=== PATIENT | male | born 1995 | race Asian ===

== ENCOUNTER → 2016-06-08 | Outpatient (CLI) | payer OTHER ==
--- NOTE | 2016-06-08 15:08 | DIAGNOSTIC IMAGING REPORT ---
SINUS CT CT DOSE: 494.44 mGy.cm HISTORY: Sinusitis. Pain. SINUSITIS TECHNIQUE: Multiaxial CT images of the paranasal sinuses were performed and reformatted in the coronal plane without the use of contrast. COMPARISON: None. FINDINGS: Minimal mucosal thickening of the dependent frontal sinuses. Mild mucosal thickening of the ethmoid sinuses. Small mucous tension cysts bases of the maxillary sinuses bilaterally. Mild soft tissue narrowing the ostiomeatal units. No evidence for occlusion. Sphenoid sinuses are clear. Minimal mucosal thickening of the mastoids The orbits are unremarkable. IMPRESSION: 1. Mild mucosal thickening of the final ethmoid and to a lesser extent maxillary sinuses.. 2. Mild mucosal narrowing of the ostiomeatal units bilaterally. 3. Mild mild nasal septal displacement to the left Electronically signed by: Theo Massey M.D. 06/08/2016 3:07 PM Dictated Date/Time: 06/08/2016 3:00 PM
== END | disposition home or self-care (01) ==
LOC: C.CTS 14:50
PROVIDERS: ATTEND Pediatrics
DX: J01.91 Acute recurrent sinusitis, unspecified (principal)

== ENCOUNTER → 2016-08-07 | Outpatient (CLI) | payer OTHER ==
--- NOTE | 2016-08-07 14:09 | DIAGNOSTIC IMAGING REPORT ---
FUSION CT SINUSES W/O HISTORY: J34.3 Hypertrophy of both inferior nasal turbinates TECHNIQUE: Multiaxial CT images of the sinuses were performed and reformatted in the coronal plane without the use of contrast. Fusion CT protocol was also obtained. COMPARISON STUDY: Sinus CT 06/08/2016. FINDINGS: Mild mucosal thickening within the floors of the bilateral frontal sinuses with partial opacification of the left frontoethmoidal recess. There is also mild mucosal thickening at the floors of the bilateral maxillary sinuses and majority of the ethmoid air cells. Minimal mucosal thickening within the sphenoid sinuses. No new fluid levels within the maxillary sinuses. The mastoid air cells are clear. No evidence for carotid canal dehiscence. Left nasal septal deviation with a left-sided nasal spur. There is hypertrophy of the left inferior nasal turbinate in comparison to the right. Hypertrophy of the right middle and inferior nasal turbinate has improved in the interval. The lamina papyracea and orbital floors are intact. Partial opacification of the left ethmoid infundibulum which has slightly progressed. The right ostiomeatal unit is essentially patent. The orbits and visualized brain parenchyma are unremarkable. IMPRESSION: 1. Minimal to mild chronic paranasal sinus disease as described above which is similar to the prior study. No new fluid levels to suggest acute sinusitis. 2. Left nasal septal deviation. 3. Improvement in the right middle and inferior nasal turbinate hypertrophy. Electronically signed by: Davey Diehl M.D. 08/07/2016 2:07 PM Dictated Date/Time: 08/07/2016 1:59 PM
== END | disposition home or self-care (01) ==
LOC: C.CTS 13:33
DX: J34.3 Hypertrophy of nasal turbinates (principal); J34.2 Deviated nasal septum